=== PATIENT | male | born 1970 | race Caucasian/White ===

== ENCOUNTER 2017-03-21 12:32 | Emergency (ER) | payer OTHER ==
[~2017-03-21] VITALS: Ht 175.3 cm; Wt 70.3 kg
--- NOTE | 2017-03-21 13:18 | ED NEURO DEFICIT/STROKE ---
History of Present Illness General Chief Complaint: General Adult Stated Complaint: NUMBNESS ALL OVER BODY XS 3 WEEKS AT NIGHT Source: patient Exam Limitations: no limitations Vital Signs & Intake/Output Vital Signs & Intake/Output Vital Signs Date Time Temp Pulse Resp B/P B/P Pulse O2 O2 Flow FiO2 Mean Ox Delivery Rate 03/21 1551 98.0 73 18 150/81 99 Room Air 03/21 1241 98.6 72 18 152/83 98 Room Air Allergies Coded Allergies: shellfish derived (Severe, ANAPHYLAXIS 03/21/17) Reconcile Medications Diazepam (Valium) 2 MG TABLET 1 TAB PO QPM PARAESTHESIA Triage Note: 46 YO MALE TO TRIAGE C/O "BURSTS" OF NUMBESS ALL OVER BODY ON/OFF. "IT FEELS LIKE MY MUSCLES ARE RYDER" DENIES S/S AT THIS TIME. Triage Nurses Notes Reviewed? yes Onset: Abrupt Duration: intermittent Timing: recent history Severity: moderate Vision Problem? 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 Patient states that during the day he has no symptoms patient states however today he woke up or he had paresthesias last night in the paresthesia has been intermittent all day. Patient has been complaining of extremity muscle contractions as well. Patient states that he did drink alcohol yesterday and was first attributing his symptoms to hang over. Patient denies any cocaine use however does smoke marijuana. Denies any facial droop headache blurred vision facial paresthesia neck pain neck stiffness chest pain shortness of breath cough palpitations nausea vomiting extremity weakness. (VEGA PARTIDA) Past History Travel History Traveled to [place] past 21 day No Medical History Any Pertinent Medical History? see below for history Neurological: peripheral neuropathy EENT: NONE Cardiovascular: NONE Respiratory: NONE Gastrointestinal: NONE Hepatic: NONE Renal: NONE Musculoskeletal: NONE Psychiatric: NONE Endocrine: NONE Blood Disorders: NONE Cancer(s): NONE RETURN TO FACTORY CLERK/Reproductive: NONE Surgical History Surgical History: non-contributory Psychosocial History What is your primary language Icelandic Tobacco Use: Never used Family History Hx Contributory? No (VEGA PARTIDA) Review of Systems Review of Systems Constitutional: Reports: no symptoms. EENTM: Reports: no symptoms. Respiratory: Reports: no symptoms. Cardiovascular: Reports: no symptoms. GI: Reports: no symptoms. Genitourinary: Reports: no symptoms. Musculoskeletal: Reports: no symptoms. Skin: Reports: no symptoms. Neurological/Psychological: Reports: see HPI, paresthesia. Hematologic/Endocrine: Reports: no symptoms. Immunologic/Allergic: Reports: no symptoms. All Other Systems: Reviewed and Negative (VEGA PARTIDA) Physical Exam Physical Exam General Appearance: no apparent distress, alert, comfortable Cranial Nerves: normal hearing, normal speech, PERRL Comments: Well-developed well-nourished person in no acute distress HEENT: Normal EENT exam, extraocular motion intact, no nystagmus. Pupils equally round and reactive to light and accommodation. Nose is atraumatic. External auditory canal and Tympanic membranes clear. Pharynx normal. No swelling or edema. Neck: Supple, no lymphadenopathy, normal range of motion without pain or tenderness Nontender Back: Nontender, no CVA tenderness. Full range of motion Cardiovascular: Regular rate and rhythms no murmurs rubs or gallops, normal JVP Respiratory: Chest nontender. No respiratory distress.breath sounds clear to auscultation bilaterally Abdomen: Soft, nontender nondistended, no appreciable organomegaly. Normal bowel sounds. No ascites Extremity: No edema, no calf tenderness to palpation, normal and equal pulses. Neuro: Alert oriented x3, motor sensory normal, cranial nerves II through XII grossly intact. Bilateral upper extremity and lower extremity myotomes dermatomes DTRs intact Skin: No appreciable rash on exposed skin, skin is warm and dry. Psych: Mood and affect is normal, memory and judgment is normal. Core Measures CVA/TIA Diagnosis: No Severe Sepsis Present: No Septic Shock Present: No (VEGA PARTIDA) Progress Differential Diagnosis: acute glaucoma, Aguilar's Palsy, drug intoxication, electrolyte imbalance, encephalitis, hypoglycemia, intracranial Hem., intracranial mass/tumor, meningitis, migraine TAYLOR, seizure disorder, stroke, subarachnoid Hem., vertebrobasilar insuff. Plan of Care: Orders Procedure Date/time Status URINE DRUG SCREEN FOR ER ONLY 03/21 1338 Complete URINALYSIS 03/21 1338 Complete THYROID STIMULATING HORMONE 03/21 1337 Complete TROPONIN LEVEL 03/21 133 Complete MAGNESIUM 03/21 1337 Complete FREE T4 03/21 133 Complete COMPREHENSIVE METABOLIC PANEL 03/21 1337 Complete CBC WITHOUT DIFFERENTIAL 03/21 1337 Complete EKG 03/21 1337 Active Laboratory Tests 03/21/17 1344: Anion Gap 10, Estimated GFR > 60, BUN/Creatinine Ratio 13.8, Glucose 84, Calcium 9.0, Magnesium 1.9, Total Bilirubin 1.1, AST 32, ALT 40, Alkaline Phosphatase 48 , Troponin I < 0.01, Total Protein 7.4, Albumin 4.7, Globulin 2.7, Albumin/ Globulin Ratio 1.7, TSH 1.340, Free T4 0.84, CBC w Diff NO MAN DIFF REQ, RBC 4.56 L, MCV 92.4, MCH 30.8, RDW 13.8, MPV 7.4, Gran % 64.1, Lymphocytes % 23.6, Monocytes % 10.2 H, Eosinophils % 1.8, Basophils % 0.3, Absolute Granulocytes 3.9, Absolute Lymphocytes 1.4, Absolute Monocytes 0.6, Absolute Eosinophils 0.1, Absolute Basophils 0, PUBS MCHC 33.3, Urine Opiates Screen < 100.00, Methadone Screen < 40, Barbiturate Screen < 60, Ur Phencyclidine Scrn < 6.00, Amphetamines Screen < 100, U Benzodiazepines Scrn < 85, Urine Cocaine Screen < 50, Urine Cannabis Screen 66.50 H, Urine Color STRAW, Urine Clarity CLEAR, Urine pH 6.5, Ur Specific [place] <= 1.005, Urine Protein NEG, Urine Ketones NEG, Urine Nitrite NEG, Urine Bilirubin NEG, Urine Urobilinogen 0.2, Ur Leukocyte Esterase NEG, Ur Microscopic EXAM NOT REQUIRED, Urine Hemoglobin NEG, Urine Glucose NEG Patient currently is in no apparent distress and has no concern of CVA or TIA, patient's physical exam was unremarkable no neurovascular deficit CT scan was unremarkable for acute process. Upon discharge patient looks well no apparent distress and will comply with discharge instructions and had no questions NIH STROKE SCALE 0 (CATHY FLEMING,VEGA) Diagnostic Imaging: Viewed by Me: CT Scan. Radiology Impression: no acute abnormality Initial ED EKG: normal intervals, normal p-waves, normal QRS complex, 56 BPM Comments: PATIENT: FERMIN MARINA PRESENT AGE: 46 PATIENT ACCOUNT NO: [id number] : 70 LOCATION: [facility] ORDERING PHYSICIAN: VEGA FLEMING SERVICE DATE: 03/21/17 EXAM TYPE: CAT - CT CERV SPINE W IV CONTRAST EXAMINATION: CT CERVICAL SPINE WITH CONTRAST CLINICAL INFORMATION: Entire body paresthesias. COMPARISON: No relevant prior studies are available for comparison. TECHNIQUE: Axial CT images of the cervical spine were obtained following the administration of 94 mL Optiray 320 intravenous contrast. Coronal and sagittal reconstructions were provided and reviewed. DLP: 334.38 mGy-cm. FINDINGS: There is straightening of the normal cervical lordosis, which may be positional or related to muscular spasm.There is no evidence of a fracture or dislocation of the cervical spine.The disc height spaces are maintained. The visualized skull base is unremarkable.The prevertebral soft tissue appears unremarkable. There is no abnormal soft tissue enhancement.The visualized lung apices are unremarkable. The visualized portions of the carotid arteries are unremarkable. There is a dominant left-sided vertebral artery. No aneurysmal dilatation or dissection is identified. SPINAL LEVELS: C2-C3: Normal. C3-C4: Normal. C4-C5: Normal. C5-C6: Normal. C6-C7: Normal. C7-T1: Normal. IMPRESSION: 1. No fracture or subluxation. 2. No abnormal soft tissue enhancement. 3. No vascular abnormality identified within the visualized portions of the neck. 4. If the patient's symptomatology continues an MRI scan could be considered if patient is an appropriate candidate and there are no contraindications to MRI. (VEGA PARTIDA) Departure Departure Disposition: HOME OR SELF CARE Condition: Stable Clinical Impression Primary Impression: Peripheral neuropathy Referrals: ROGER HERNANDEZ,TADEO GAVIRIA MD,HARSHA (PCP/Family) Additional Instructions: As discussed continue all medications as directed. If symptoms worsen return to emergency room. Begin the prescription of Valium as directed for your symptoms. If no better by tomorrow follow-up an established neurologist Dr. DURAN Departure Forms: Customer Survey General Discharge Information Prescriptions: Current Visit Scripts Diazepam (Valium) 1 TAB PO QPM #6 TAB (VEGA PARTIDA) PA/LIFT TEAM TECHNICIAN Co-Sign Statement Statement: ED Attending supervision documentation- I saw and evaluated the patient. I have also reviewed all the pertinent lab results and diagnostic results. I agree with the findings and the plan of care as documented in the PA's/LIFT TEAM TECHNICIAN's documentation. x I have reviewed the ED Record and agree with the PA's/LIFT TEAM TECHNICIAN's documentation. [] Additions or exceptions (if any) to the PAs/LIFT TEAM TECHNICIAN's note and plan are summarized below: [] (BRIAN HERNANDEZ,AMADEO)
[2017-03-21 13:52] LABS: ABSOLUTE BASOPHIL COUNT 0 /CUMM (0.0-0.2); ABSOLUTE EOSINOPHIL COUNT 0.1 /CUMM (0.0-0.7); ABSOLUTE GRANULOCYTE CT 3.9 /CUMM (1.4-6.5); ABSOLUTE LYMPH COUNT 1.4 /CUMM (1.2-3.4); ABSOLUTE MONOCYTE COUNT 0.6 /CUMM (0.10-0.60); BASOPHIL % 0.3 % (0.0-2.0); EOSINOPHIL % 1.8 % (0-5); GRANULOCYTE % 64.1 % (42.2-75.2); HEMATOCRIT 42.1 % (42-52); MEAN CORPUSCULAR HGB 30.8 PG (27.0-31.0); MEAN CORPUSCULAR HGB CONC 33.3 G/DL (33.0-37.0); MEAN CORPUSCULAR VOLUME 92.4 FL (80.0-94.0); MEAN PLATELET VOLUME 7.4 FL (7.4-10.4); PLATELET COUNT 243 /CUMM (130-400); RBC DISTRIBUTION WIDTH 13.8 % (11.5-14.5); RED BLOOD CELL CT 4.56 /CUMM (4.70-6.10)
[2017-03-21] MEDS ORDERED: VALIUM2 M1 PO (15:21)
--- NOTE | 2017-03-21 15:31 | CT SCAN REPORT ---
EXAMINATION: CT CERVICAL SPINE WITH CONTRAST CLINICAL INFORMATION: Entire body paresthesias. COMPARISON: No relevant prior studies are available for comparison. TECHNIQUE: Axial CT images of the cervical spine were obtained following the administration of 94 mL Optiray 320 intravenous contrast. Coronal and sagittal reconstructions were provided and reviewed. DLP: 334.38 mGy-cm. FINDINGS: There is straightening of the normal cervical lordosis, which may be positional or related to muscular spasm.There is no evidence of a fracture or dislocation of the cervical spine.The disc height spaces are maintained. The visualized skull base is unremarkable.The prevertebral soft tissue appears unremarkable. There is no abnormal soft tissue enhancement.The visualized lung apices are unremarkable. The visualized portions of the carotid arteries are unremarkable. There is a dominant left-sided vertebral artery. No aneurysmal dilatation or dissection is identified. SPINAL LEVELS: C2-C3: Normal. C3-C4: Normal. C4-C5: Normal. C5-C6: Normal. C6-C7: Normal. C7-T1: Normal. IMPRESSION: 1. No fracture or subluxation. 2. No abnormal soft tissue enhancement. 3. No vascular abnormality identified within the visualized portions of the neck. 4. If the patient's symptomatology continues an MRI scan could be considered if patient is an appropriate candidate and there are no contraindications to MRI.
[2017-03-21 15:51] VITALS: BP 150/81
== END 2017-03-21 15:55 ==
LOC: ERH 12:32
PROVIDERS: Physician Assistant
DX: G62.9 Polyneuropathy, unspecified (principal); F12.10 Cannabis abuse, uncomplicated; F10.10 Alcohol abuse, uncomplicated
CPT/HCPCS: 80307; 81003; 93005; 93010